=== PATIENT | female | born 1970 ===

== ENCOUNTER 2018-06-18 17:39 | Emergency (ER) | payer MEDICAID ==
[2018-06-18 17:53] VITALS: RESP 16; O2SAT 98
[2018-06-18] MEDS ORDERED: Sodium Chloride 0.9% 1,000 ML IV SCH (18:45)
[2018-06-18 19:07] LABS: BASO % 0.5 % (0.0-2.0); EOS # 0.1 K/uL (0.0-0.7); EOS % 1.3 % (0.0-4.0); HEMOGLOBIN 11.3 g/dL (12.0-16.0); LYMPH % 25.2 % (20.0-40.0); MEAN CORPUSCULAR HEMOGLOBIN 24.7 pg (27.0-31.0); MEAN CORPUSCULAR HGB CONC 31.6 g/dL (33.0-37.0); MEAN PLATELET VOLUME 7.6 fl (7.2-11.7); MONO # 0.9 K/uL (0.0-0.8); MONO % 10.7 % (0.0-10.0); NEUT % 62.3 % (50.0-75.0); RBC 4.59 Mil/uL (3.80-5.20); RED CELL DISTRIBUTION WIDTH 15.4 % (11.5-14.5)
[2018-06-18 19:30] LABS: ALB/GLOB RATIO 1.1 (1.0-2.1); ALBUMIN 4.2 g/dL (3.5-5.0); ALT/SGPT 15 U/L (9-52); AST/SGOT 27 U/L (14-36); BLOOD UREA NITROGEN 12 mg/dl (7-17); CALCIUM 9.7 mg/dL (8.4-10.2); GFR NON-AFRICAN AMERICAN > 60; LIPASE 107 U/L (23-300)
[2018-06-18 19:50] LABS: SQUAMOUS EPITHIAL 5 /hpf (0-5); URINE BACTERIA RARE (<OCC); URINE BILIRUBIN NEGATIVE (NEGATIVE); URINE BLOOD NEGATIVE (NEGATIVE); URINE CLARITY SLIGHTY-CLOUDY (Clear); URINE COLOR YELLOW (YELLOW); URINE GLUCOSE (UA) NEG (Normal); URINE LEUKOCYTE ESTERASE MOD Leu/uL (Negative); URINE PROTEIN NEGATIVE (NEGATIVE); URINE UROBILINOGEN 0.2-1.0 mg/dL (0.2-1.0)
[2018-06-18] MEDS ORDERED: Tmp-Smz 800 mg-160 mg DS Tab PO STA (20:03)
[2018-06-18] MEDS ORDERED: Tmp-Smz 800 mg-160 mg DS Tab ONE (21:05)
--- NOTE | 2018-06-18 22:01 | ED PDOC ---
HPI: Abdomen Time Seen by Provider: 06/18/18 18:07 Chief Complaint (Nursing): Abdominal Pain Chief Complaint (Provider): Abdominal Pain History Per: Patient History/Exam Limitations: no limitations Onset/Duration Of Symptoms: Days, Worse Since Location Of Pain/Discomfort: Suprapubic Associated Symptoms: Nausea, Constipation. denies: Vomiting Additional Complaint(s): 47 year old female with PMHx of anemia and iron deficiency presents to the ED for an evaluation of worsening lower abdominal pain and back pain onset for 2 days. Patient states she felt nauseous but she is able to tolerate PO and feels constipated for which she took laxatives. Also report of discomfort and increased urination which is dark. Patient states the pain started today prompting her to come to the ED. Patient used to be on iron pills but stopped due to constipation and now takes vitamin D. Her last menstrual period was May 02 and she believes she is premenstrual. Denies vomiting. PMD: Dr. Gtz Abnormal Vaginal Bleeding: No Past Medical History Reviewed: Historical Data, Nursing Documentation, Vital Signs Vital Signs: Last Vital Signs Temp 98.4 F 06/18/18 17:50 Pulse 77 06/18/18 17:50 Resp 16 06/18/18 17:50 BP 114/67 06/18/18 17:50 Pulse Ox 98 06/18/18 17:50 - Medical History PMH: Anemia Other PMH: iron deficiency - Surgical History Surgical History: Cholecystectomy Other surgeries: tummy tuck, breast reductions, gastric sleeve - Family History Family History: States: Unknown Family Hx - Home Medications Home Medications: Ambulatory Orders Medication Instructions Recorded Oxycodone HCl/Acetaminophen 1 tab PO Q6H PRN #15 tab 03/01/16 [Percocet 325 mg-5 mg] Phenazopyridine HCl [Pyridium] 100 mg PO TID #6 tablet 06/18/18 Sulfamethoxazole/Trimethoprim 1 tab PO BID #28 tab 06/18/18 [Bactrim DS 800 mg-160 mg] - Allergies Allergies/Adverse Reactions: Allergies Allergy/AdvReac Type Severity Reaction Status Date / Time No Known Allergies Allergy Verified 06/18/18 17:50 Review of Systems ROS Statement: Except As Marked, All Systems Reviewed And Found Negative Constitutional: Negative for: Fever Gastrointestinal: Positive for: Nausea, Abdominal Pain, Constipation. Negative for: Vomiting, Diarrhea Genitourinary Female: Positive for: Other (increased urination ) Musculoskeletal: Positive for: Back Pain Physical Exam - Reviewed Nursing Documentation Reviewed: Yes Vital Signs Reviewed: Yes - Physical Exam Appears: Positive for: Well, Non-toxic, No Acute Distress Head Exam: Positive for: ATRAUMATIC, NORMAL INSPECTION, NORMOCEPHALIC Skin: Positive for: Normal Color, Warm, Dry Eye Exam: Positive for: EOMI, Normal appearance, PERRL ENT: Positive for: Normal ENT Inspection Neck: Positive for: Normal, Painless ROM, Supple. Negative for: Decreased ROM Cardiovascular/Chest: Positive for: Regular Rate, Rhythm. Negative for: Murmur Respiratory: Positive for: Normal Breath Sounds. Negative for: Decreased Breath Sounds, Wheezing, Respiratory Distress Gastrointestinal/Abdominal: Positive for: Soft, Tenderness (mild, suprapupic on palpation) Back: Positive for: R CVA Tenderness Extremity: Positive for: Normal ROM. Negative for: Tenderness, Pedal Edema, Deformity - Laboratory Results Result Diagrams: 06/18/18 19:01 06/18/18 19:01 - ECG O2 Sat by Pulse Oximetry: 98 (RA) Pulse Ox Interpretation: Normal Medical Decision Making Medical Decision Making: Time: 1834 Initial Impression: Workup for UTI and pyelonephritis Initial Plan: --BETA-HCG, Quantitative --CMP --Lipase --CBC w/ Differential --Bactrim DS Tab --Sodium Chloride 1000 mls/hr --Pyridium 100mg --Toradol 30mg --Culture Urine --Urinalysis --Reevaluation Clinical Impression: urinary tract infection Upon provider evaluation patient is medically stable, and requires no further treatment in the ED at this time. Patient will be discharged with Pyridium 100mg and Bactrim DS for UTI. Counseling was provided and all questions were answered regarding diagnosis and need for follow up with PMD. There is agreement to discharge plan. Return if symptoms persist or worsen. Scribe Attestation: Documented by Tosha Quiñones, acting as a scribe for Tammy Barnes MD Provider Scribe Attestation: All medical record entries made by the Scribe were at my direction and personally dictated by me. I have reviewed the chart and agree that the record accurately reflects my personal performance of the history, physical exam, medical decision making, and the department course for this patient. I have also personally directed, reviewed, and agree with the discharge instructions and disposition. Disposition - Clinical Impression Clinical Impression: Urinary tract infection - Patient ED Disposition Is Patient to be Admitted: No - Disposition Disposition: Routine/Home Disposition Time: 22:01 Condition: IMPROVED Additional Instructions: Today you were evaluated for lower abdominal pain and back pain. Your lab work shows that you have a urinary tract infection with possible kidney infection. You have been started on an antibiotic and were given Toradol and pyridium for pain control. You were given prescriptions for the same medications. Please follow up with your primary doctor in one week and return to the emergency department if symptoms worsen or if you develop fever, vomiting, or other new symptoms. Prescriptions: Phenazopyridine HCl [Pyridium] 100 mg PO TID #6 tablet Sulfamethoxazole/Trimethoprim [Bactrim DS 800 mg-160 mg] 1 tab PO BID #28 tab Instructions: Urinary Tract Infections in Adults, Kidney Infection, Urinary Tract Infection, Adult (DC) Forms: [employer] (Kyrgyz) Print Language: SLOVAK
[2018-06-18 22:11] VITALS: BP 134/68; PULSE 82; TEMP 98
== END 2018-06-18 22:10 | disposition home or self-care (01) ==
LOC: H.ER 17:39
DX: N39.0 Urinary tract infection, site not specified (principal)
CPT/HCPCS: 80053; 81003; 81025; 83690; 84702; 85025; 87086; 96361; 96374; 99283; J1885; J7030